=== PATIENT | male | born 1950 | race Caucasian/White ===

== ENCOUNTER → 2017-06-01 | Outpatient (CLI) | payer OTHER ==
[~2017-06-01] MED LIST: OPTIRAY 320 IV PRN
--- NOTE | 2017-06-01 13:49 | DIAGNOSTIC IMAGING REPORT ---
ANGIOGRAPHY HEAD COMBO HISTORY: Mental status change headache TECHNIQUE: Multiaxial CT images of the head were performed both before and after the intravenous administration of contrast to evaluate the major cerebral vessels. Maximum intensity projection images were also obtained. A dose lowering technique was utilized adhering to the principles of ALARA. COMPARISON: None. FINDINGS: There is no mass, hematoma, midline shift, or acute infarct. Visualized intracranial internal carotid arteries, distal vertebral arteries, and basilar artery are widely patent. There is no significant stenosis, occlusion, or aneurysm seen within the bilateral ACAs, MCAs, or group home supervisor. IMPRESSION: No significant stenosis, occlusion, or aneurysm within the [place]. The above report was generated using voice recognition software. It may contain grammatical, syntax or spelling errors. Electronically signed by: Ricci Umaña M.D. 06/01/2017 1:48 PM Dictated Date/Time: 06/01/2017 1:44 PM
--- NOTE | 2017-06-01 13:57 | DIAGNOSTIC IMAGING REPORT ---
CT ANGIOGRAPHY OF THE NECK WITH CONTRAST CLINICAL HISTORY: Symptomatic stenosis of the left carotid artery. COMPARISON STUDY: No previous studies for comparison. Technique: CT angiography of the carotid and vertebral arteries was obtained using [employer]eng[employer] 320 IV and 3D reconstruction on an independent workstation. NASCET criteria was utilized. A dose lowering technique was utilized adhering to the principles of ALARA. Findings: The lung apices are clear. There is no cervical lymphadenopathy. There is moderate plaque within the proximal right internal carotid artery without significant stenosis. There is extensive calcified atherosclerotic plaque within the left carotid bifurcation which makes evaluation difficult. However, there is a significant stenosis with the vessel lumen measuring approximately 0.95 mm. The distal left internal carotid artery measures 3.6 mm. The findings suggest an 80% stenosis of the proximal left internal carotid artery. In addition, there are moderate stenosis of the bilateral external carotid arteries. The vertebral arteries are patent. There is no dissection. The CTA of the head will be reported separately. IMPRESSION: 1. Short segment significant stenosis at the origin of the left internal carotid artery which is difficult to evaluate given extensive plaque however approximate 80% stenosis. 2. Moderate plaque within the proximal right internal carotid artery without significant stenosis. 3. Moderate stenoses of the proximal bilateral external carotid arteries. Electronically signed by: Jr Pinto M.D. 06/01/2017 1:56 PM Dictated Date/Time: 06/01/2017 1:46 PM
== END | disposition home or self-care (01) ==
LOC: C.CTS 12:06
PROVIDERS: ATTEND Psychiatry & Neurology Neurology
DX: I65.22 Occlusion and stenosis of left carotid artery (principal)